=== PATIENT | male | born 1990 | race Caucasian/White ===

== ENCOUNTER 2016-09-12 21:59 | Emergency (ER) | payer MEDICAID ==
[~2016-09-12] VITALS: Ht 172.7 cm; Wt 90.7 kg
[~2016-09-12 21:59] MED LIST: KEFLEX 500MG.500 MG PO
--- OUTSIDE RECORDS SUMMARY | 2016-09-12 22:09 | External Medical Summary Rpt ---
Author Author , DOMINIQUE Soriano DOMINIQUE Address Unknown Phone [email or web address] Care Team Providers Care Dry Chain Worker Name Role Phone [facility] [place], Unavailable Unavailable [facility] [place] [facility] [place], Unavailable Unavailable [facility] [place] BEINEKE MARIELA, BEINEKE Unavailable Unavailable MARIELA BEINEKE MARIELA, BEINEKE Unavailable Unavailable MARIELA [facility] Unavailable Unavailable SERVICE, [facility] [employer] [facility] Unavailable Unavailable SERVICE, [facility], Unavailable Unavailable [facility] FRYMELENA FRYMAN Unavailable Unavailable ALEXANDR JOANNE, ALEXANDR Unavailable Unavailable JOANNE [facility] Unavailable Unavailable INC, [facility] Unavailable Unavailable HOSPITAL P, [facility] P [facility], Unavailable Unavailable [facility] MALGORZATA MCGARRY Unavailable Unavailable [facility], [facility] TAMMIE NAGEL, Unavailable Unavailable TAMMIE NAGEL JR DWI, HOLLIE Unavailable Unavailable JR DWI MERHAR GAR, MERHAR Unavailable Unavailable RICK CROCKER, Unavailable Unavailable RICK WILLIAM R HENRY, Unavailable Unavailable Higinio CALDWELL, Unavailable Unavailable [facility], [facility] HERIBERTO LUNA, HERIBERTO Unavailable Unavailable [facility] Unavailable Unavailable EM[facility]Y [facility], [facility] Purpose Continuity of Care Document - 03-29-2007 through 2016 Problems Code Diagnosis DOS Provider Status R140 ABDOMINAL 06-08-2016 [facility] DISTENSION PHYSICIANS GASEOUS GROUP Z0000 ENCOUNTER 06-08-2016 [facility] GEN ADULT PHYSICIANS MED EXAM GROUP W/O ABNORMAL FIND R1084 GENERALIZED 04-29-2016 DESIREE ABDOMINAL PHYSICIANS, PAIN [facility] Z720 TOBACCO USE 04-29-2016 [facility] 6089 UNSPECIFIED 06-26-2014 [facility] P GENITAL ORGANS 44136 OTHER 10-10-2013 [facility] AMBULANCE OF SERVICE CONSCIOUSNE SS 7802 SYNCOPE AND 10-10-2013 [facility] P 7991 RESPIRATORY 10-10-2013 BEINEKE MARIELA ARREST 9778 POISONING 10-10-2013 [facility] OTHER SPEC N EMERGENCY DRUGS&MEDIC PHYSI INAL SUBSTANCES E9505 CECE&SLF-INF 10-10-2013 [facility] POISN AMBULANCE UNS SERVICE RX/MEDICINA L SBSTNC E9804 POISONING 10-10-2013 [facility] BY OTH DRUG N EMERGENCY & PHYSI MEDICINE-UN DETERM CAUSE V642 SURG/OTH 10-10-2013 [facility] PROC NOT [facility] CARRIED OUT HOSPITAL P BECAUSE PTS DECN 28426 OPEN WOUND 06-19-2013 [facility] WITHOUT [facility] M[place]ION COMPLICATIO N 35008 OPEN WOUND 06-19-2013 [facility] OF [place]ST, [place] COMPLICATED 8820 OPEN WOUND 06-19-2013 [facility] NO SERV [facility] ALONE W/O MENTION COMP 8831 OPEN WOUND 06-19-2013 [facility] OF FINGER, [place] COMPLICATED 9039 INJURY 06-19-2013 AIR [facility] UNSPECIFIED [place] BLOOD VESSEL UPPER EXTREMITY E986 INJR 06-19-2013 [facility] CUT&PIERC SERV INSTRUM [facility]OUNDATION UNDET ACC/PRPSLY INFLICT 460 ACUTE 12-06-2008 [facility] ITIS 6829 CELLULITIS 06-19-2008 [facility] UNSPECIFIED SITE 7062 SEBACEOUS 06-19-2008 [facility] 2150 OTH ANEUDY 01-12-2008 ROBE, NEOPLSM TAMMIE Smith CNCTV&OTH SFT TISS HEAD FCE&NCK 94632 ACUTE 01-12-2008 ROBE, INFECTION TAMMIE Smith OF [place] 5273 ABSCESS OF 03-29-2007 FAMILY [facility] GLAND Medications Na ND Rx Da Fi Fi Am Da Di Ph RX Ph St me C No te ll ll ou ys ag ar # ys at rm s nt no ma ic us Or Da si cy ia de te s n re d CL 00 10 10 00 14 7 CL 20 MU Ac AR 05 -0 -0 .0 IN 17 LB ti IT 40 1- 8- 00 IC 92 ER ve HR 03 20 20 RY OM 72 09 09 PH YC 1 AR BR IN MA IA CY N 50 T 0 MG TA BL ET AM 00 04 04 00 21 7 CL 19 NO Ac OX 78 -1 -2 .0 IN 17 RF ti IC 12 4- 3- 00 IC 36 LE ve IL 61 20 20 ET LI 30 09 09 PH R N 1 AR 50 MA HE 0 CY NR MG Y CA PS UL E 53 02 04 00 10 5 CL 16 No Ac 48 -2 -0 .0 IN 57 t ti 90 6- 7- 00 IC 10 Av ve 13 20 20 ai 90 08 08 PH la 5 AR bl MA e CY 60 02 04 00 18 5 CL 16 No Ac 25 -2 -0 0. IN 57 t ti 80 6- 7- 00 IC 09 Av ve 23 20 20 0 ai 91 08 08 PH la 6 AR bl MA e CY AM 66 01 03 00 14 7 CL 16 No Ac OX 68 -2 -2 .0 IN 31 t ti -C 51 2- 5- 00 IC 94 Av ve LA 00 20 20 ai V 10 08 08 PH la 87 0 AR bl 5- MA e 12 CY 5 MG TA BL ET Results Labs Lab Lab Date Result Refere Interp Status Commen Order Detail nces retati t Range on Drugs identified in Urine by Screen method (09-10-2016 15:05) Ampheta NEGATIV <1000 complet mine 017 E ed [Presen 15:05 ce] in Urine by Screen method 11-Hydr POSITIV <50 Abnorma complet oxy 017 E l ed delta-9 15:05 tetrahy drocann abinol [Presen ce] in Unspeci fied specime n Differential panel, method unspecified - (09-10-2016 13:05) LYMPH 23 % 10% - Normal complet 017 50% ed 13:05 Platele NORMAL complet ts 017 ed [Presen 13:05 ce] in Blood by Light microsc opy Procedures Procedure DOS Code Location Performer Comment GENERAL 87203 [facility] PANEL INC INC HEPATITIS 71014 [facility] B CORE 7 [facility] [place] [address] [facility] HEPATITIS [facility] B INC INC SURFACE ANTIGEN HEPATITIS 89187 [facility] C [facility] [place] [address] [facility] FREE [facility] THYROXINE INC INC HEPATITIS 49349 G[facility] A 7 [facility] ANTIBODY INC INC HAAB COLLECTIO 02548 [facility] N VENOUS 7 [facility] BLOOD INC INC VENIPUNCT URE LIPID 61663 [facility] PANEL 7 [facility] INC INC URNLS DIP 24765 [facility] STICK/TAB INC INC LET REAGENT AUTO MICROSCOP Y BLOOD 12980 [facility] COUNT 7 [facility] COMPLETE INC INC AUTO&AUTO DIFRNTL WBC COMPREHEN 41473 [facility] SIVE 7 [facility] [place] [address] [facility] ABDOMEN & 7 [facility] PELVIS INC INC W/O CONTRAST MATERIAL PROTHROMB 95624 [facility] IN TIME 7 [facility] INC THROMBOPL 72660 [facility] ASTIN 7 [facility] TIME INC INC PARTIAL PLASMA/WH OLE BLOOD RADIOLOGI 25393 BEINEKE BEINEKE C 4 MARIELA MARIELA EXAMINATI ON CHEST SINGLE VIEW FRONTAL AMB A0427 BRUNILDA [facility] SERVICE 4 AMBULANCE AMBULANCE ALS SERVICE SERVICE EMERGENCY TRANSPORT LEVEL 1 ECG 60292 [facility] BROWNE JR ROUTINE 4 [facility] W/LEAST P 12 LDS I&R ONLY GROUND A0425 [facility] MILEAGE 4 AMBULANCE AMBULANCE PER SERVICE SERVICE STATUTE MILE RADEX 15369 [place] [facility] HAND 4 MEDICAL GAR MINIMUM 3 SERV VIEWS FOUNDATIO N AMB A0431 [facility] SERVICE 4 METHODS METHODS CONVNTION [facility] AIR SRVC TRANSPORT [address] RADEX 97276 [place] [facility] FOREARM 2 4 MEDICAL GAR VIEWS SERV FOUNDATIO N BLOOD 38000 FAMILY MULBERRY, COUNT 9 CARE RICK T COMPLETE ASSOCIATE AUTO&AUTO S DIFRNTL WBC IAADIADOO 74510 FAMILY PAULETTE, 8 CARE Higinio RAHMAN STREPTOCO ASSOCIATE CCUS S GROUP A Encounters Encounter Start End Date Code Location Performer Type Date OFFICE 83191 [facility] FRYMAN OUTPATIEN 7 7 PHYSICIAN T NEW 20 S GROUP [facility] - 7 7 [facility] OUTPATIEN INC T EMERGENCY 69485 DESIREE MCGARRY DEPT 7 7 PHYSICIAN VISIT S, PLLC HIGH SEVERITY& THREAT [facility] - 7 7 [facility] H[facility] OUTPATIEN INC T EMERGENCY 25208 [facility] 7 7 [facility] DEPARTMEN INC T VISIT MODERATE SEVERITY EMERGENCY 99355 [facility] 5 5 [facility] INC T VISIT LIMITED/M INOR PROB EMERGENCY 50150 [facility] 5 5 [facility] T VISIT P LOW/MODER SEVERITY HOSPITAL GINGER - 5 5 MEM HOSP OUTPATIEN INC T EMERGENCY 64440 [facility] DEPT 4 4 LIZ JOANNE VISIT EMERGENCY HIGH PHYSI SEVERITY& THREAT [facility], [facility] EMERGENCY 86968 JENSEN SNYDERU 4 4 [facility] SERV T VISIT FOUNDATIO MODERATE N SEVERITY OFFICE 12689 FAMILY STEWART OUTPOOJAEN 9 9 CARE RICK T T VISIT ASSOCIATE 15 S MINUTES OFFICE 98471 FAMILY PAULETTE OUTGENEVIEVE 9 9 CARE R LACEY T VISIT ASSOCIATE 15 S MINUTES OFFICE 41175 ROBE NAGEL, OUTPOOJAEN 8 8 TAMMIE Young NEW 30 MINUTES OFFICE 63277 FAMILY PAULETTE OUTPOOJAEN 8 8 CARE R LACEY T VISIT ASSOCIATE 15 S MINUTES OFFICE 21860 FAMILY PAULETTE OUTPOOJAEN 8 8 CARE R LACEY T VISIT ASSOCIATE 15 S MINUTES
--- OUTSIDE RECORDS SUMMARY | 2016-09-12 22:09 | External Medical Summary Rpt ---
Author Author , DOMINIQUE Soriano DOMINIQUE Address Unknown Phone [email or web address] Care Team Providers Care Loan Servicing Representative Name Role Phone [facility] [place], Unavailable Unavailable [facility] [place] [facility] [place], Unavailable Unavailable [facility] [place] BEINEKE MARIELA, BEINEKE Unavailable Unavailable MARIELA BEINEKE MARIELA, BEINEKE Unavailable Unavailable MARIELA [facility] Unavailable Unavailable SERVICE, [facility] Unavailable Unavailable SERVICE, [facility], Unavailable Unavailable [facility]INIC PHARMACY FRYMELENA FRYMAN Unavailable Unavailable ALEXANDR JOANNE, ALEXANDR Unavailable Unavailable JOANNE [facility] Unavailable Unavailable INC, [facility] Unavailable Unavailable HOSPITAL P, [facility] P [facility], Unavailable Unavailable [facility] MALGORZATA MCGARRY Unavailable Unavailable [facility], [facility] TAMMIE NAGEL, Unavailable Unavailable TAMMIE NAGEL JR DWI, HOLLIE Unavailable Unavailable JR DWI MERHAR GAR, MERHAR Unavailable Unavailable RICK CROCKER, Unavailable Unavailable RICK WILLIAM R HENRY, Unavailable Unavailable Higinio CALDWELL, Unavailable [facility]available [facility], [facility] HERIBERTO LUNA, HERIBERTO Unavailable Unavailable [facility] Unavailable Unavailable EMERGENCY PHYSI, [facility] Purpose Continuity of Care Document - 03-29-2007 through 2016 Problems Code Diagnosis DOS Provider Status R140 ABDOMINAL 06-08-2016 [facility] DISTENSION PHYSICIANS GASEOUS GROUP Z0000 ENCOUNTER 06-08-2016 [facility] GEN ADULT PHYSICIANS MED EXAM GROUP W/O ABNORMAL FIND R1084 GENERALIZED 04-29-2016 DESIREE ABDOMINAL PHYSICIANS, PAIN [facility] Z720 TOBACCO USE 04-29-2016 [facility] INC 6089 UNSPECIFIED 06-26-2014 [facility] P GENITAL ORGANS 32132 OTHER 10-10-2013 [facility] AMBULANCE OF SERVICE CONSCIOUSNE SS 7802 SYNCOPE AND 10-10-2013 [facility] P 7991 RESPIRATORY 10-10-2013 BEINEKE MARIELA ARREST 9778 POISONING 10-10-2013 [facility] OTHER SPEC N EMERGENCY DRUGS&MEDIC PHYSI INAL SUBSTANCES E9505 CECE&SLF-INF 10-10-2013 [facility] LI[facility] POISN AMBULANCE UNS SERVICE RX/MEDICINA L SBSTNC E9804 POISONING 10-10-2013 [facility] BY OTH DRUG N EMERGENCY & PHYSI MEDICINE-UN DETERM CAUSE V642 SURG/OTH 10-10-2013 [facility] PROC NOT [facility] CARRIED OUT HOSPITAL P BECAUSE PTS DECN 67225 OPEN WOUND 06-19-2013 [facility] SERV WITHOUT FOUNDATION MENTION COMPLICATIO N 23094 OPEN WOUND 06-19-2013 [facility] OF WRIST, [place] COMPLICATED 8820 OPEN WOUND 06-19-2013 IN MEDICAL HAND NO SERV [facility]OUNDATION ALONE W/O MENTION COMP 8831 OPEN WOUND 06-19-2013 [facility] OF FINGER, [place] COMPLICATED 9039 INJURY 06-19-2013 [facility] UNSPECIFIED [place] BLOOD VESSEL UPPER EXTREMITY E986 INJR 06-19-2013 [facility] MEDICAL CUT&PIERC SERV INSTRUM FOUNDATION UNDET ACC/PRPSLY INFLICT 460 ACUTE 12-06-2008 [facility] ITIS 6829 CELLULITIS 06-19-2008 [facility] ABSCESS [facility] OF UNSPECIFIED SITE 7062 SEBACEOUS 06-19-2008 [facility] 2150 OTH ANEUDY 01-12-2008 ROBE, NEOPLSM TAMMIE Smith CNCTV&OTH SFT TISS HEAD FCE&NCK 18314 ACUTE 01-12-2008 ROBE, INFECTION TAMMIE Smith OF [place] 5273 ABSCESS OF 03-29-2007 FAMILY [facility] SALIVARY ASSOCIATES GLAND Medications Na ND Rx [...] Procedure DOS Code Location Performer Comment GENERAL 08973 [facility] PANEL INC INC HEPATITIS 24195 G[facility] B CORE 7 [facility] [place]IB[place] [address] [facility] HEPATITIS [facility] B INC INC SURFACE ANTIGEN HEPATITIS 24404 [facility] C 7 [facility] [place] [address] [facility] FREE 7 [facility] THYROXINE INC INC HEPATITIS 36627 [facility] A 7 [facility] ANTIBODY INC INC HAAB COLLECTIO 91940 [facility] N VENOUS 7 MEM HOS[facility] BLOOD INC INC VENIPUNCT URE LIPID 46440 [facility] PANEL 7 [facility] INC INC URNLS DIP 84280 [facility] STICK/TAB INC INC LET REAGENT AUTO MICROSCOP Y BLOOD 23761 [facility] COUNT 7 [facility] COMPLETE INC INC AUTO&AUTO DIFRNTL WBC COMPREHEN 08873 [facility] SIVE 7 [facility] [place] [address] [facility] ABDOMEN & 7 [facility] PELVIS INC INC W/O CONTRAST MATERIAL PROTHROMB 29042 [facility] IN TIME 7 [facility] HOS[facility] INC THROMBOPL 36501 [facility] ASTIN 7 MEM HOS[facility] TIME INC INC PARTIAL PLASMA/WH OLE BLOOD RADIOLOGI 52520 BEINEKE BEINEKE C 4 MARIELA MARIELA EXAMINATI ON CHEST SINGLE VIEW FRONTAL AMB A0427 BRUNILDA [facility] SERVICE 4 AMBULANCE AMBULANCE ALS SERVICE SERVICE EMERGENCY TRANSPORT LEVEL 1 ECG 74903 GINGER BROWNE JR ROUTINE 4 [facility] W/LEAST P 12 LDS I&R ONLY GROUND A0425 [facility] MILEAGE 4 AMBULANCE AMBULANCE PER SERVICE SERVICE STATUTE MILE RADEX 25971 [place] [facility] HAND 4 MEDICAL GAR MINIMUM 3 SERV VIEWS FOUNDATIO N AMB A0431 AIR AIR SERVICE 4 METHODS METHODS CONVNTION [facility] AIR SRVC TRANSPORT [address] RADEX 46421 [place] [facility] FOREARM 2 4 MEDICAL GAR VIEWS SERV FOUNDATIO N BLOOD 57856 FAMILY MULBERRY, COUNT 9 CARE RICK T COMPLETE ASSOCIATE AUTO&AUTO S DIFRNTL WBC IAADIADOO 52937 FAMILY PAULETTE, 8 CARE Higinio RAHMAN STREPTOCO ASSOCIATE CCUS S GROUP A Encounters Encounter Start End Date Code Location Performer Type Date OFFICE 56468 [facility] FRYMAN OUTPATIEN 7 7 PHYSICIAN T NEW 20 S GROUP [facility] GINGER - 7 7 MEM HOS[facility] OUTPATIEN INC T EMERGENCY 20778 DESIREE MCGARRY DEPT 7 7 PHYSICIAN VISIT S, PLLC HIGH SEVERITY& THREAT [facility] GINGER - 7 7 MEM HOS[facility] OUTPATIEN INC T EMERGENCY 20879 GINGER 7 7 [facility] DEPARTMEN INC T VISIT MODERATE SEVERITY EMERGENCY 56752 [facility] 5 5 [facility] INC T VISIT LIMITED/M INOR PROB EMERGENCY 71800 [facility]ING[facility] 5 5 [facility] T VISIT P LOW/MODER SEVERITY [facility]OSPITAL GINGER - 5 5 [facility] OUTPATIEN INC T EMERGENCY 14973 [facility] INC DEPT 4 4 LIZ JOANNE VISIT EMERGENCY HIGH PHYSI SEVERITY& THREAT [facility] EMERGENCY 25739 JENSEN SNYDERU 4 4 [facility] T VISIT FOUNDATIO MODERATE N SEVERITY OFFICE 90990 FAMILY STEWART OUTPOOJAEN 9 9 CARE RICK T T VISIT ASSOCIATE 15 S MINUTES OFFICE 94563 FAMILY PAULETTE OUTGENEVIEVE 9 9 CARE R LACEY T VISIT ASSOCIATE 15 S MINUTES OFFICE 25542 ROBE NAGEL, OUTPOOJAEN 8 8 TAMMIE Young NEW 30 MINUTES OFFICE 14800 FAMILY PAULETTE OUTPOOJAEN 8 8 CARE R LACEY T VISIT ASSOCIATE 15 S MINUTES OFFICE 75011 FAMILY PAULETTE OUTPOOJAEN 8 8 CARE R LACEY T VISIT ASSOCIATE 15 S MINUTES
--- OUTSIDE RECORDS SUMMARY | 2016-09-12 22:10 | External Medical Summary Rpt ---
Demographics Preferred Language Spanish Marital Status Unknown Jehovah'S Witness Affiliation Unknown Race Unknown Ethnic Group Unknown Author Author , DOMINIQUE FOX Address Unknown Phone Immunization Unable to retrieve immunization data due to connection failure with Immunization Registry. Please try again later.
--- OUTSIDE RECORDS SUMMARY | 2016-09-12 22:10 | External Medical Summary Rpt ---
Demographics Preferred Language Puerto Rican Marital Status Unknown Restorationist Affiliation Unknown Race Unknown Ethnic Group Unknown Author Author , DOMINIQUE FOX Address Unknown Phone Immunization Unable to retrieve immunization data due to connection failure with Immunization Registry. Please try again later.
--- OUTSIDE RECORDS SUMMARY | 2016-09-12 22:10 | External Medical Summary Rpt ---
Author Author , DOMINIQUE FOX Address Unknown Phone [email or web address] Team Providers Care Freight Tallier Name Role Phone [facility] [place], Unavailable Unavailable [facility] [place] [facility] [place], Unavailable Unavailable [facility] [place] BEINEKE MARIELA, BEINEKE Unavailable Unavailable MARIELA BEINEKE MARIELA, BEINEKE Unavailable Unavailable MARIELA [facility] Unavailable Unavailable SERVICE, [facility] Unavailable Unavailable SERVICE, [facility]ICE [facility], Unavailable Unavailable [facility] FRYMELENA FRYMAN Unavailable Unavailable ALEXANDR JOANNE, ALEXANDR Unavailable Unavailable JOANNE [facility] Unavailable Unavailable INC, [facility] Unavailable Unavailable HOSPITAL P, [facility], Unavailable Unavailable [facility] MALGORZATA MCGARRY Unavailable Unavailable [facility], [facility] TAMMIE NAGEL, Unavailable Unavailable TAMMIE NAGEL JR DWI, HOLLIE Unavailable Unavailable JR DWI MERHAR GAR, MERHAR Unavailable Unavailable GAR RICK WILLIAM, Unavailable Unavailable RICK WILLIAM R HENRY, Unavailable Unavailable Higinio [facility], Unavailable Unavailable [facility], [facility], [facility] HERIBERTO LUNA, HERIBERTO Unavailable Unavailable [facility] Unavailable Unavailable EMERGENCY [facility], [facility] Purpose Continuity of Care Document - 03-29-2007 through 2016 Problems Code Diagnosis DOS Provider Status R140 ABDOMINAL 06-08-2016 [facility] DISTENSION PHYSICIANS GASEOUS GROUP Z0000 ENCOUNTER 06-08-2016 [facility] GEN ADULT PHYSICIANS MED EXAM GROUP W/O ABNORMAL FIND R1084 GENERALIZED 04-29-2016 [facility] ABDOMINAL PHYSICIANS, [facility] Z720 TOBACCO USE 04-29-2016 [facility] INC 6089 UNSPECIFIED 06-26-2014 [facility] P GENITAL ORGANS 06534 OTHER 10-10-2013 [facility] AMBULANCE OF SERVICE CONSCIOUSNE SS 7802 SYNCOPE AND 10-10-2013 [facility] P 7991 RESPIRATORY 10-10-2013 BEINEKE MARIELA ARREST 9778 POISONING 10-10-2013 [facility] OTHER SPEC N EMERGENCY DRUGS&MEDIC PHYSI INAL SUBSTANCES E9505 CECE&SLF-INF 10-10-2013 [facility] LICT POISN AMBULANCE UNS SERVICE RX/MEDICINA L [facility] E9804 POISONING 10-10-2013 [facility] BY OTH DRUG N EMERGENCY & PHYSI MEDICINE-UN DETERM CAUSE V642 SURG/OTH 10-10-2013 [facility] PROC NOT [facility] P BECAUSE PTS DECN 91318 OPEN WOUND 06-19-2013 [facility] WITHOUT FOUNDATION MENTION COMPLICATIO N 77380 OPEN WOUND 06-19-2013 AIR METHODS OF [place]RIST, [place] COMPLICATED 8820 OPEN WOUND 06-19-2013 [facility] HAND NO SERV [facility] FOUNDATION ALONE W/O MENTION COMP 8831 OPEN WOUND 06-19-2013 AIR [facility] OF FINGER, [place] COMPLICATED 9039 INJURY 06-19-2013 AIR METHODS UNSPECIFIED [place] BLOOD VESSEL UPPER EXTREMITY E986 INJR 06-19-2013 [facility] CUT&PIERC SERV INSTRUM FOUNDATION UNDET ACC/PRPSLY INFLICT 460 ACUTE 12-06-2008 [facility] ITIS 6829 CELLULITIS 06-19-2008 [facility] ABSCESS [facility] OF UNSPECIFIED SITE 7062 SEBACEOUS 06-19-2008 [facility] CYST ASSOCIATES 2150 OTH ANEUDY 01-12-2008 RO[facility] NEOPLSM TAMMIE mSith CNCTV&OTH SFT TISS HEAD FCE&NCK 66866 ACUTE 01-12-2008 ROBE, INFECTION TAMMIE Smith OF [place] 5273 ABSCESS OF 03-29-2007 [facility] SALIVARY ASSOCIATES GLAND Medications Na ND [...] 12 CY 5 MG TA BL ET Procedures Procedure DOS Code Location Performer Comment HEPATITIS 98654 G[facility] B CORE 7 [facility] [place] [address] [facility] HEPATITIS 7 [facility] B INC INC SURFACE ANTIGEN COLLECTIO 67907 G[facility] MILES N VENOUS 7 [facility] [place] [address] [facility] FREE 7 [facility] THYROXINE INC INC HEPATITIS 43706 G[facility] MILES A 7 MEM H[facility] ANTIBODY INC INC HAAB LIPID 02898 [facility] PANEL 7 [facility] INC INC HEPATITIS 71410 [facility] C 7 [facility] ANTIBODY INC INC GENERAL 40665 [facility] HEALTH 7 [facility] PANEL INC INC BLOOD 84654 [facility] COUNT 7 [facility] COMPLETE INC INC AUTO&AUTO DIFRNTL WBC THROMBOPL 66848 [facility] ASTIN 7 [facility] TIME INC INC PARTIAL PLASMA/WH OLE BLOOD URNLS DIP 75032 [facility] MILES 7 [facility] STICK/TAB INC INC LET REAGENT AUTO MICROSCOP Y COMPREHEN 30620 [facility] SIVE 7 [facility] METABOLIC INC INC PANEL PROTHROMB 35069 [facility] MILES IN TIME [address] [place] [address] G[facility] MILES ABDOMEN & 7 [facility] PELVIS INC INC W/O CONTRAST MATERIAL ECG 86733 GINGER BROWNE JR ROUTINE 4 [facility] W/LEAST P 12 LDS I&R ONLY GROUND A0425 BRUNILDA [facility] MILEAGE 4 AMBULANCE AMBULANCE PER SERVICE SERVICE STATUTE MILE RADIOLOGI 22720 RAJESH ALMAZANCAMMY C 4 MARIELA MARIELA EXAMINATI ON CHEST SINGLE VIEW FRONTAL AMB A0427 [facility] SERVICE 4 AMBULANCE AMBULANCE ALS SERVICE SERVICE EMERGENCY TRANSPORT LEVEL 1 AMB A0431 AIR [facility] SERVICE 4 METHODS METHODS CONVNTION [facility] AIR SRVC TRANSPORT [address] RADEX 71496 [place] [facility] FOREARM 2 4 MEDICAL GAR VIEWS SERV FOUNDATIO N RADEX 38518 [place] [facility] HAND 4 MEDICAL GAR MINIMUM 3 SERV VIEWS FOUNDATIO N BLOOD 47204 FAMILY MULBERRY, COUNT 9 CARE RICK T COMPLETE ASSOCIATE AUTO&AUTO S DIFRNTL WBC IAADIADOO 32066 FAMILY PAULETTE, 8 CARE R LACEY STREPTOCO ASSOCIATE CCUS S GROUP A Encounters Encounter Start End Date Code Location Performer Type Date HOSPITAL GINGER - 7 7 [facility] OUTPATIEN INC T OFFICE 82141 [facility] FRYMAN OUTPATIEN 7 7 PHYSICIAN T NEW 20 S GROUP MINUTES EMERGENCY 09863 GINGER 7 7 [facility] T VISIT MODERATE SEVERITY EMERGENCY 37996 DESIREE MCGARRY DEPT 7 7 PHYSICIAN VISIT S, PLLC HIGH SEVERITY& THREAT [facility] GINGER - 7 7 [facility] OUTPATIEN INC T HOSPITAL GINGER - 5 5 [facility] OUTPATIEN INC T EMERGENCY 90340 [facility] 5 5 [facility] VISIT LIMITED/M INOR PROB EMERGENCY 30543 GINGER 5 5 [facility] T VISIT P LOW/MODER SEVERITY EMERGENCY 88624 [facility] DEPT 4 4 LIZ JOANNE VISIT EMERGENCY HIGH PHYSI SEVERITY& THREAT FUNCJ EMERGENCY 72175 [place] HERIBERTO 4 4 MEDICAL LUNA DEPARTMEN SERV T VISIT FOUNDATIO MODERATE N SEVERITY OFFICE 24882 FAMILY STEWART, OUTPATIEN 9 9 CARE RICK T T VISIT ASSOCIATE 15 S MINUTES OFFICE 32723 FAMILY PAULETTE, OUTPATIEN 9 9 CARE R LACEY T VISIT ASSOCIATE 15 S MINUTES OFFICE 19580 ROBE NAGEL, OUTPATIEN 8 8 TAMMIE Young NEW 30 MINUTES OFFICE 40298 FAMILY PAULETTE, OUTPATIEN 8 8 CARE R LACEY T VISIT ASSOCIATE 15 S MINUTES OFFICE 52373 FAMILY PAULETTE, OUTPATIEN 8 8 CARE R LACEY T VISIT ASSOCIATE 15 S MINUTES
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
--- OUTSIDE RECORDS SUMMARY | 2016-09-12 22:11 | External Medical Summary Rpt ---
Author Author DOMINIQUE Esteban, [employer] Organization [employer] Address Unknown Phone Unavailable Results Drugs identified in Urine by Screen method Observa Value Referen Units Interpr Notes Date tion ce etation Range Positive urine drug screen samples are stored for 7 days. Contact the Lab if confirmation of positives is needed. Ampheta NEGATIV <1000 ng/mL No No Sep 10 mine E informa informa 2016 [Presen tion in tion in 3:05 PM ce] in source source Urine data data by Screen method Barbitura <200 ng/mL No No Sep 10 susan informati informati 2017 3:05 [Mass/vol on in on in PM ume] in source source Urine by data data Screen method Benzodiaz 200 ng/mL ng/mL High This is Sep 10 epines an 2016 3:05 [Mass/vol UNCONFIRM PM ume] in ED Serum or result. Plasma by This Screen result is method for medicalpu rposes and/or treatment only. Cocaine <300 ng/g No No Sep 10 [Mass/vol informati informati 2017 3:05 ume] in on in on in PM Unspecifi source source ed data data specimen Methadone <300 ng/mL No No Sep 10 informati informati 2016 3:05 [Mass/vol on in on in PM ume] in source source Unspecifi data data ed specimen Opiates <300 ng/mL No No Sep 10 [Mass/vol informati informati 2016 3:05 ume] in on in on in PM Unspecifi source source ed data data specimen Phencycli <25 ng/mL No No Sep 10 dine informati informati 2017 3:05 [Mass/vol on in on in PM ume] in source source Unspecifi data data ed specimen 11-Hydr POSITIV <50 ng/mL Abnorma This is Sep 10 oxy E l an 2017 delta-9 UNCONFI 3:05 PM RMED tetrahy result. drocann This abinol result [Presen is for ce] in medical Unspeci purpose fied s specime and/or n treatme nt only. Acetaminophen [Mass/volume] in Unspecified specimen Observa Value Referen Units Interpr Notes Date tion ce etation Range Acetamino 10 - 30 ug/mL Low No Sep 10 phen informati 2016 1:05 [Mass/vol on in PM ume] in source Unspecifi data ed specimen Ethanol [Mass/volume] in Serum or Plasma Observa Value Referen Units Interpr Notes Date tion ce etation Range Ethanol 0 - 99 mg/dL Normal ANY Sep 10 [Mass/vol ALCOHOL > 2017 1:05 ume] in OR = 80 PM Serum or MG/DL IS Plasma CONSIDERE D LEGALLYIN TOXICATED UNDER [place] [employer] LAW. Comprehensive metabolic 2000 panel in Serum or Plasma Observa Value Referen Units Interpr Notes Date tion ce etation Range Albumin/G 1.1 - 1.8 No Normal No Sep 10 lobulin informati informati 2016 1:05 [Mass on in on in PM ratio] in source source Serum or data data Plasma Albumin 3.4 - 5.0 gm/dL High No Sep 10 [Mass/vol informati 2016 1:05 ume] in on in PM Serum or source Plasma data Alkaline 46 - 116 U/L Normal No Sep 10 phosphata informati 2016 1:05 se on in PM [Enzymati source c data activity/ volume] in Serum or Plasma Bilirubin 0.2 - 1.0 mg/dL High No Sep 10 .total informati 2016 1:05 [Mass/vol on in PM ume] in source Serum or data Plasma Urea 7 - 18 mg/dL High No Sep 10 nitrogen informati 2017 1:05 [Mass/vol on in PM ume] in source Serum or data Plasma Calcium 8.5 - mg/dL Normal No Sep 10 [Mass/vol 10.1 informati 2017 1:05 ume] in on in PM Serum or source Plasma data Chloride 98 - 107 mmoL/L Normal No Sep 10 [Moles/vo informati 2016 1:05 lume] in on in PM Serum or source Plasma data Carbon 21.0 - mmoL/L Low No Sep 10 dioxide, 32.0 informati 2017 1:05 total on in PM [Moles/vo source lume] in data Serum or Plasma Creatinin 0.70 - mg/dL Normal No Sep 10 e 1.30 informati 2017 1:05 [Mass/vol on in PM ume] in source Serum or data Plasma Creatinin 50 - 200 ML/MIN Normal No Sep 10 e renal inform2016 1:05 clearance on in PM source predicted data by Cockcroft -Gault formula Estimated >60 ML/MIN No REFERENCE Sep 10 informati RANGE: 2017 1:05 glomerula on in >60 PM r source ML/MIN/1. filtratio data 73 SQUARE n rate METERSIf (GF this patient is -A merican, then multiply theresult by 1.210. Globulin 1.3 - 3.2 gm/dL High No Sep 10 [Mass/vol informati 2016 1:05 ume] in on in PM Serum source data Glucose 74 - 106 mg/dL Normal No Sep 10 [Mass/vol informati 2016 1:05 ume] in on in PM Serum or source Plasma data Potassium 3.5 - 5.1 mmoL/L Low No Sep 102016 1:05 [Moles/vo on in PM lume] in source Serum or data Plasma Sodium 136 - 145 mmoL/L Normal No Sep 10 [Moles/vo informati 2016 1:05 lume] in on in PM Serum or source Plasma data Aspartate 15 - 37 U/L High No Sep 10 informati 2016 1:05 aminotran on in PM sferase source [Enzymati data c activity/ volume] in Serum or Plasma Alanine 12 - 78 U/L Normal No Sep 10 aminotran inform2016 1:05 sferase on in PM [Enzymati source c data activity/ volume] in Serum or Plasma Protein 6.4 - 8.2 gm/dL High No Sep 10 [Mass/vol informati 2016 1:05 ume] in on in PM Serum or source Plasma data Salicylates [Mass/volume] in Serum or Plasma Observa Value Referen Units Interpr Notes Date tion ce etation Range Salicylat 2.8 - mg/dL Low No Sep 10 es 20.0 ati 2016 1:05 [Mass/vol on in PM ume] in source Serum or data Plasma Free T4 & TSH panel in Serum or Plasma Observa Value Referen Units Interpr Notes Date tion ce etation Range Thyroxine 5.93 - ug/dl Normal No Sep 10 (T4) 13.13 informati 2016 1:05 free on in PM index in source Serum or data Plasma Triiodoth 31 - 39 % Normal No Sep 10 yronine informati 2016 1:05 (T3) on in PM resin source uptake in data Serum or Plasma Thyroxine 4.7 - ug/dl Normal No Sep 10 (T4) 13.3 inform2016 1:05 [Mass/vol on in PM ume] in source Serum or data Plasma Thyrotrop 0.358 - uIU/ml No No Sep 10 in 3.740 informati informati 2016 1:05 [Units/vo on in on in PM lume] in source source Serum or data data Plasma CBC W Auto Differential panel in Blood Observa Value Referen Units Interpr Notes Date tion ce etation Range Basophils 0 - 0.2 K/MM3 Normal No Sep 10 inform2016 1:05 [#/volume on in PM ] in source Blood by data Automated count Basophils 0.1 - 2.0 % Normal No Sep 10 /100 informati 2016 1:05 leukocyte on in PM s in source Blood by data Automated count Eosinophi 0.0 - 0.4 K/mm3 Normal No Sep 10 ls ati 2016 1:05 [#/volume on in PM ] in source Blood by data Automated count Eosinophi 0.1 - % Normal No Sep 10 ls/100 12.0 informati 2016 1:05 leukocyte on in PM s in source Blood by data Automated count Granulocy 1.3 - 8.0 K/mm3 High No Sep 10 susan informati 2016 1:05 [#/volume on in PM ] in source Blood by data Automated count Granulocy 37.0 - % Normal No Sep 10 susan/100 80.0 informati 2016 1:05 leukocyte on in PM s in source Blood by data Automated count Hematocri 42.0 - % Normal No Sep 10 t [Volume 52.0 informati 2016 1:05 on in PM Fraction] source of Blood data Hemoglobi 14.1 - g/dL Normal No Sep 10 n 18.0 informati 2016 1:05 [Mass/vol on in PM ume] in source Blood data Lymphocyt 0.7 - 4.5 K/mm3 Normal No Sep 10 es informati 2016 1:05 [#/volume on in PM ] in source Unspecifi data ed specimen by Automated count Lymphocyt 10 - 50 % Normal No Sep 10 es informati 2016 1:05 [#/volume on in PM ] in source Unspecifi data ed specimen by Automated count Erythrocy 27 - 31.2 pg High No Sep 10 te mean inform2016 1:05 corpuscul on in PM ar source hemoglobi data n [Entitic mass] Erythrocy 31.8 - g/dl Normal No Sep 10 te mean 35.4 inform 2017 1:05 corpuscul on in PM ar source hemoglobi data n concentra tion [Mass/vol ume] by Automated count Erythrocy 82.2 - fl Normal No Sep 10 te mean 97.8 informati 2016 1:05 corpuscul on in PM ar volume source [Entitic data volume] by Automated count Monocytes 0.1 - 1.0 K/mm3 Normal No Sep 10 informati 2016 1:05 [#/volume on in PM ] in source Blood by data Automated count Monocytes 1.7 - 9.3 % Normal No Sep 10 informati 2016 1:05 leukocyte on in PM s in source Blood by data Automated count Platelet 7.4 - fl Low No Sep 10 mean 10.4 informati 2016 1:05 volume on in PM [Entitic source volume] data in Blood by Automated count Platelets 142 - 424 K/mm3 Normal No Sep 10 informati 2017 1:05 [#/volume on in PM ] in source Blood data Erythrocy 4.6 - 6.2 M/mm3 Normal No Sep 10 susan informati 2017 1:05 [#/volume on in PM ] in source Amniotic data fluid Erythrocy 11.5 - % Normal No Sep 10 te 17.5 informati 2017 1:05 distribut on in PM ion width source [Entitic data volume] by Automated count Leukocyte 4.8 - K/MM3 High No Sep 10 s 10.8 informati 2016 1:05 [#/volume on in PM ] in source Blood data Differential panel, method unspecified - Observa Value Referen Units Interpr Notes Date tion ce etation Range Neutrophi 0 - 8 % Normal No Sep 10 ls.band informati 2017 1:05 form/100 on in PM leukocyte source s in data Blood by Automated count LYMPH 23 10 - 50 % Normal No Sep 10 inform 2017 tion in 1:05 PM source data Metamyelo 0 - 1 % High No Sep 10 cytes/100 informati 2017 1:05 on in PM leukocyte source s in data Blood by Manual count Monocytes 2 - 9 % Normal No Sep 10 /100 informati 2017 1:05 leukocyte on in PM s in source Blood by data Automated count Platele NORMAL No No No No Sep 10 ts informa informa informa informa 2016 [Presen tion in tion in tion in tion in 1:05 PM ce] in source source source source Blood data data data data by Light microsc opy Neutrophi 42 - 76 % Normal No Sep 10 ls informati 2016 1:05 [#/volume on in PM ] in source Blood by data Automated count Cells No #CELLS No No Sep 10 Counted informati informati informati 2017 1:05 Total [#] on in on in on in PM in Blood source source source data data data
--- OUTSIDE RECORDS SUMMARY | 2016-09-12 22:11 | External Medical Summary Rpt ---
[...] IS Plasma CONSIDERE D LEGALLYIN TOXICATED UNDER [place] [employer] LAW. Comprehensive metabolic 2000 panel in Serum [...]
[2016-09-12 22:20] LABS: HEMOGLOBIN 16.6 g/dL (14.1-18.0); LYMPH # 4.5 K/mm3 (0.7-4.5); LYMPH % 19.1 % (10-50)
--- NOTE | 2016-09-12 22:22 | Emergency Room Report ---
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 POLICE, MEDICAL CLEARANCE FOR [facility]. PT WAS FOUND IN A GARAGE NOT OF HIS OWN RESIDENCE, PT DID NOT HAVE ON ANY CLOTHES. PT IS CURRENTLY HAND CUFFED TO THE BED. PT ALERT TO SELF ONLY DURING TRIAGE. PT UNSURE OF HOW HE GOT INTO THE GARAGE. PT WAS FOUND LAYING ON THE GROUND. Onset of symptoms date/time:/ or onset unknown for:MEDICAL HX UNKNOWN Treatment Prior to Arrival: [employer]QU[employer]KER Provided by: Sepsis Risk Assessment: Temp: 102.4 B/P: 166/103 MAP: 124 Pulse: 142 Resp: 22 Recent fever? N Clinical Suspician of Infection? N Mental Status: 3 - Acutely Altered Sepsis Risk:Severe Sepsis Risk Have you (or family members/close friends) recently traveled outside the [place]? N If Yes, where/when: Have you had exposure to infectious disease within the past month? N TB? Other? Specify: Source patient, RN notes reviewed, family, old records Exam Limitations no limitations Comment pt with known pschy issues and was recently in the ed for same and tonight had fever and no cough/sore throat/ rash or flu sx - he has no chest or abd pain and no focal neuro sx Cardiac Chest Pain Chest pain indicative of cardiac No Timing/Duration this evening Severity moderate ALLERGIES Coded Allergies: No Known Allergies (09/10/16) Home Medications Reported Medications No Known Home Medications History Medical History General CAD? No Angina: No FL: No Hypertension? No Hyperlipidemia? No CHF? No DVT? No PE? No COPD? No Asthma? No Anemia? No GERD? No Gastric ulcers? No GI Bleed? No Hernia? No Thyroid Problems? No Hypothyroidism? No CVA? No Seizures? No Diabetes? No Renal Insuffiency? No End Stage Renal Disease? No UTI? No Stones? No BPH? No GB Disease: No Nephritic Syndrome? No Asplenia? No Hepatitis? No Sickle Cell Disease? No Arthritis? No Migraines? No Cataracts? No Glaucoma? No MRSA? No HIV? No TB? No Anxiety? Yes Depression? Yes Cancer? No Immunization Hx DT/Tetanus 1-4 YRS Surgical Hx Previous Surgery?Y Tonsils Social History Smoking Hx Smoker: Never Smoker Tobacco: No Packs/day N/A Alcohol Alcohol: Yes Drugs marijuana Additionial History Additional History he admits to snorting meds and thc Review of Systems All Other Systems Reviewed and Negative Constitutional see HPI, fever Eyes denies drainage ENT denies: ear pain, epistaxis, throat pain. Respiratory denies cough, denies shortness of breath, denies wheezing Cardiovascular denies chest pain, denies syncope Gastrointestinal denies diarrhea, denies vomiting Genitourinary denies: dysuria, frequency, hesitancy, hematuria. Musculoskeletal denies back pain, denies joint pain, denies joint swelling, denies neck pain Skin denies rash Psychiatric/Neurological denies headache, denies seizure Physical Exam Vital Signs Vital Signs Date Time Temp Pulse Resp B/P Pulse O2 O2 Flow FiO2 Ox Delivery Rate 09/13 0119 91 20 166/97 98 09/13 0108 92 20 99 09/13 0039 99 20 160/112 99 /09 0008 96 20 151/85 99 /08 2359 98.5 100 22 168/102 99 /08 2330 98.5 107 22 179/113 97 /08 2327 107 22 179/113 97 07/08 2258 115 22 192/112 97 07/08 2227 131 22 187/109 97 07/08 2204 102.4 142 22 166/103 97 General Appearance no apparent distress Eye Exam - bilateral eye PERRL, bilateral eye EOMI Comment no icterus Ear, Nose, Throat normal ENT inspection, normal pharynx, no sinus tenderness or nasal lesions Neck supple, no meningeal sx Respiratory Status No: respiratory distress, productive cough. Lung Sounds bilateral: lungs clear. 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 No Results/Orders Laboratory Tests 09/12/162215: Lactic Acid 10.8 H 09/12/162209: Opiates Screen NEGATIVE, Urine Methadone Screen NEGATIVE, Barbiturates NEGATIVE, Phencyclidine Screen NEGATIVE, Amphetamines Screen NEGATIVE, Benzodiazepines Screen POSITIVE H, Cocaine Screen NEGATIVE, Marijuana (THC) Screen POSITIVE H, Urine Color YELLOW, Urine Appearance SL CLOUDY, Urine pH 6.0, Ur Specific Ball >= 1.030, Urine Protein 3+ H, Urine Ketones TRACE H, Urine Blood 3+ H , Urine Nitrate NEGATIVE, Urine Bilirubin NEGATIVE, Urine Urobilinogen 0.2, Ur Leukocyte Esterase NEGATIVE, Urine RBC 5-10, Amorphous Sediment TRACE, Hyaline Casts FEW, Coarse Granular Casts FEW, Urine Mucus TRACE, Urine Glucose NEGATIVE 09/12/162200: Creatine Kinase 887 H, CK-MB (CK-2) Rel Index 0.5, CK and CKMB Interp 4.7 H, Troponin I < 0.02, ESR 1 09/12/162200: Sodium 142, Potassium 2.7 *L, Chloride 100, Carbon Dioxide 14 L, BUN 22 H, Creatinine 1.8 H, Estimated Creat Clear 81, Estimated GFR (MDRD) 46, Glucose 189 H, Calcium 11.0 H, Total Bilirubin 1.0, AST 61 H, ALT 64, Alkaline Phosphatase 83, Total Protein 8.9 H, Albumin 4.7, Globulin 4.2 H, Albumin/ Globulin Ratio 1.1, WBC 23.5 *H, RBC 5.22, Hgb 16.6, Hct 50.0, MCV 95.8, RDW 13.5, Plt Count 308, MPV 7.6, Gran % 73.3, Gran # 17.2 H, Total Counted 100, Lymphocytes % 19.1, Monocytes % 7.0, Eosinophils % 0.1, Basophils % 0.5, Neutrophils 75, Band Neutrophils 7, Lymphocytes (Manual) 15, Lymphocytes # 4.5, Monocytes (Manual) 3, Monocytes # 1.6 H, Eosinophils # 0.0, Basophils # 0.1, Platelet Estimate NORMAL, Macrocytosis SL., Rouleaux SL., PUBS MCHC 33.2, MCH 31.9 H, Salicylates 1.9 L, Acetaminophen 0 L, Alcohols 0 Current Medication Orders Sig/Miguel Start time Last Medication Dose Route Stop Time Status Admin Ceftriaxone Sodium 1 GM ONCE ONE 09/13 2345 AC 09/13 Sodium Chloride 50 ML IV 09/14 0014 0007 Potassium Chloride 40 MEQ ONCE ONE 09/13 0045 DC 09/13 PO 09/13 0046 0047 Potassium Chloride 0 .STK-MED ONE 09/13 0040 DC PO Sodium Chloride 1,000 ML .Q1H1M 09/13 0015 DC 09/13 IV 09/13 0115 0007 Sodium Chloride 10 ML PRN PRN 09/13 0015 AC IV 09/14 0006 Ceftriaxone Sodium 0 .STK-MED ONE 09/13 0007 DC IV Sodium Chloride 50 ML .STK-MED ONE 09/13 0007 DC IV Sodium Chloride 1,000 ML .STK-MED ONE 09/12 2351 DC IV Sodium Chloride 1,000 ML .STK-MED ONE 09/12 2301 DC IV Sodium Chloride 1,000 ML .Q1H1M 09/12 2300 DC 09/12 IV 09/13 0000 2301 Sodium Chloride 10 ML PRN PRN 09/12 2300 AC IV 09/13 2300 Sodium Chloride 1,000 ML .Q1H1M 09/12 2230 DC 09/12 IV 09/12 2330 2220 Sodium Chloride 10 ML PRN PRN 09/12 2230 AC IV 09/13 2219 Acetaminophen 650 MG ONCE ONE 09/12 221 DC 09/12 ID 09/12 2216 2219 Sodium Chloride 10 ML PRN PRN 09/12 2215 AC IV 09/13 2213 Acetaminophen 0 .STK-MED ONE 09/12 2210 DC ID Sodium Chloride 1,000 ML .STK-MED ONE 09/12 2204 DC IV Orders Procedure Date/time Status DIET-NOTHING BY MOUTH 09/13 B Active LACTIC ACID FOLLOW UP 09/13 0054 Active SUBSTATION INSPECTOR 09/13 0021 Active SED RATE 09/12 222 Complete C-REACTIVE PROTEIN 09/12 2221 Complete CHEST-PORTABLE 09/13 2215 Active CARDIAC ENZYMES 09/13 2215 Complete ELECTROCARDIOGRAM REQUEST 09/12 2214 Active IV SALINE LOCK 09/12 2214 Active URINARY CATHETER INSERT 09/12 2214 Active CULTURE, BLOOD 09/12 2214 Active URINALYSIS/COMPLETE 09/12 2214 Complete SALICYLATE 09/12 2214 Complete LACTIC ACID 09/12 2214 Complete DRUG ABUSE SCREEN (TRIAGE) 09/12 2214 Complete CBC WITH AUTO DIFF 09/12 2214 Complete CHEM 12 PROFILE 09/12 2214 Complete ALCOHOL 09/12 2214 Complete Acetaminophen 09/12 2214 Complete DIFFERENTIAL-WBC 09/12 2200 Complete 12 LEAD EKG-BESSON (INITIAL) 09/12 UNK Active 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 ST/Twave chgs XRAY/CT/US XRAY/CT/US XRAY chest XR interpretation by reviewed by me Xray Results normal/NAD Departure Departure Time of Disposition 0125 Disposition DC Home or Self Care(routine) Clinical Impression Primary Impression: Febrile illness, acute Secondary Impressions: Drug abuse Hypokalemia Leukocytosis Qualifiers: Leukocytosis type: unspecified Qualified Code: D72.829 - Elevated white blood cell count, unspecified Medical clearance for incarceration Psychiatric disorder Renal insufficiency Condition STABLE Prescriptions Current Visit Scripts No Known Home Medications ED Critical Care Critical Care Yes Time spent 75-104 min Vital system(s) involved: fever joyal I was present at bedside for Coordinating pt's care, Interpreting EKGs/Strips , Reviewing lab results, Reviewing old records, Discussing pt condition, For re- examinations, Examining radiographs Comments discussed with police - he has refused testing and admit and has fever with abn wbc and no source noted - in view that he has improved in the ed and and his labs are abn but not critical - i feel it is ok to allow him to go to [facility] - it may be the safest and best option at this time - he will [place] [facility] [place] 0130
--- NOTE | 2016-09-12 22:22 | Emergency Room Report ---
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 PT WAS FOUND IN A GARAGE NOT OF HIS OWN RESIDENCE, PT DID NOT HAVE ON ANY CLOTHES. PT IS CURRENTLY HAND CUFFED TO THE BED. PT ALERT TO SELF ONLY DURING TRIAGE. PT UNSURE OF HOW HE GOT INTO THE GARAGE. PT WAS FOUND LAYING ON THE GROUND. 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 N Clinical Suspician of Infection? N Mental Status: 3 - Acutely Altered Sepsis Risk:Severe Sepsis Risk Have you (or family members/close friends) recently traveled outside the [place]? N If Yes, where/when: Have you had exposure to infectious disease within the past month? N TB? Other? Specify: Source patient, RN notes reviewed, family, old records Exam Limitations no limitations Comment pt with known pschy issues and was recently in the ed for same and tonight had fever and no cough/sore throat/ rash or flu sx - he has no chest or abd pain and no focal neuro sx Cardiac Chest Pain Chest pain indicative of cardiac No Timing/Duration this evening Severity moderate ALLERGIES Coded Allergies: No Known Allergies (09/10/16) Home Medications Reported Medications No Known Home Medications History Medical History General CAD? No Angina: No RI: No Hypertension? No Hyperlipidemia? No CHF? No DVT? No PE? No COPD? No Asthma? No Anemia? No GERD? No Gastric ulcers? No GI Bleed? No Hernia? No Thyroid Problems? No Hypothyroidism? No CVA? No Seizures? No Diabetes? No Renal Insuffiency? No End Stage Renal Disease? No UTI? No Stones? No BPH? No GB Disease: No Nephritic Syndrome? No Asplenia? No Hepatitis? No Sickle Cell Disease? No Arthritis? No Migraines? No Cataracts? No Glaucoma? No MRSA? No HIV? No TB? No Anxiety? Yes Depression? Yes Cancer? No Immunization Hx DT/Tetanus 1-4 YRS Surgical Hx Previous Surgery?Y Tonsils Social History Smoking Hx Smoker: Never Smoker Tobacco: No Packs/day N/A Alcohol Alcohol: Yes Drugs marijuana Additionial History Additional History he admits to snorting meds and thc Review of Systems All Other Systems Reviewed and Negative Constitutional see HPI, fever Eyes denies drainage ENT denies: ear pain, epistaxis, throat pain. Respiratory denies cough, denies shortness of breath, denies wheezing Cardiovascular denies chest pain, denies syncope Gastrointestinal denies diarrhea, denies vomiting Genitourinary denies: dysuria, frequency, hesitancy, hematuria. Musculoskeletal denies back pain, denies joint pain, denies joint swelling, denies neck pain Skin denies rash Psychiatric/Neurological denies headache, denies seizure Physical Exam Vital Signs Vital Signs Date Time Temp Pulse Resp B/P Pulse O2 O2 Flow FiO2 Ox Delivery Rate 09/13 0119 91 20 166/97 98 09/13 0108 92 20 99 09/13 0039 99 20 160/112 99 /09 0008 96 20 151/85 99 /08 2359 98.5 100 22 168/102 99 /08 2330 98.5 107 22 179/113 97 /08 2327 107 22 179/113 97 07/08 2258 115 22 192/112 97 07/08 2227 131 22 187/109 97 07/08 2204 102.4 142 22 166/103 97 General Appearance no apparent distress Eye Exam - bilateral eye PERRL, bilateral eye EOMI Comment no icterus Ear, Nose, Throat normal ENT inspection, normal pharynx, no sinus tenderness or nasal lesions Neck supple, no meningeal sx Respiratory Status No: respiratory distress, productive cough. Lung Sounds bilateral: lungs clear. 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 No Results/Orders Laboratory Tests 09/12/162215: Lactic Acid 10.8 H 09/12/162209: Opiates Screen NEGATIVE, Urine Methadone Screen NEGATIVE, Barbiturates NEGATIVE, Phencyclidine Screen NEGATIVE, Amphetamines Screen NEGATIVE, Benzodiazepines Screen POSITIVE H, Cocaine Screen NEGATIVE, Marijuana (THC) Screen POSITIVE H, Urine Color YELLOW, Urine Appearance SL CLOUDY, Urine pH 6.0, Ur Specific [place] >= 1.030, Urine Protein 3+ H, Urine Ketones TRACE H, Urine Blood 3+ H , Urine Nitrate NEGATIVE, Urine Bilirubin NEGATIVE, Urine Urobilinogen 0.2, Ur Leukocyte Esterase NEGATIVE, Urine RBC 5-10, Amorphous Sediment TRACE, Hyaline Casts FEW, Coarse Granular Casts FEW, Urine Mucus TRACE, Urine Glucose NEGATIVE 09/12/162200: Creatine Kinase 887 H, CK-MB (CK-2) Rel Index 0.5, CK and CKMB Interp 4.7 H, Troponin I < 0.02, ESR 1 09/12/162200: Sodium 142, Potassium 2.7 *L, Chloride 100, Carbon Dioxide 14 L, BUN 22 H, Creatinine 1.8 H, Estimated Creat Clear 81, Estimated GFR (MDRD) 46, Glucose 189 H, Calcium 11.0 H, Total Bilirubin 1.0, AST 61 H, ALT 64, Alkaline Phosphatase 83, Total Protein 8.9 H, Albumin 4.7, Globulin 4.2 H, Albumin/ Globulin Ratio 1.1, WBC 23.5 *H, RBC 5.22, Hgb 16.6, Hct 50.0, MCV 95.8, RDW 13.5, Plt Count 308, MPV 7.6, Gran % 73.3, Gran # 17.2 H, Total Counted 100, Lymphocytes % 19.1, Monocytes % 7.0, Eosinophils % 0.1, Basophils % 0.5, Neutrophils 75, Band Neutrophils 7, Lymphocytes (Manual) 15, Lymphocytes # 4.5, Monocytes (Manual) 3, Monocytes # 1.6 H, Eosinophils # 0.0, Basophils # 0.1, Platelet Estimate NORMAL, Macrocytosis SL., Rouleaux SL., PUBS MCHC 33.2, MCH 31.9 H, Salicylates 1.9 L, Acetaminophen 0 L, Alcohols 0 Current Medication Orders Sig/Miguel Start time Last Medication Dose Route Stop Time Status Admin Ceftriaxone Sodium 1 GM ONCE ONE 09/13 2345 AC 09/13 Sodium Chloride 50 ML IV 09/14 0014 0007 Potassium Chloride 40 MEQ ONCE ONE 09/13 0045 DC 09/13 PO 09/13 0046 0047 Potassium Chloride 0 .STK-MED ONE 09/13 0040 DC PO Sodium Chloride 1,000 ML .Q1H1M 09/13 0015 DC 09/13 IV 09/13 0115 0007 Sodium Chloride 10 ML PRN PRN 09/13 0015 AC IV 09/14 0006 Ceftriaxone Sodium 0 .STK-MED ONE 09/13 0007 DC IV Sodium Chloride 50 ML .STK-MED ONE 09/13 0007 DC IV Sodium Chloride 1,000 ML .STK-MED ONE 09/12 2351 DC IV Sodium Chloride 1,000 ML .STK-MED ONE 09/12 2301 DC IV Sodium Chloride 1,000 ML .Q1H1M 09/12 2300 DC 09/12 IV 09/13 0000 2301 Sodium Chloride 10 ML PRN PRN 09/12 2300 AC IV 09/13 2300 Sodium Chloride 1,000 ML .Q1H1M 09/12 2230 DC 09/12 IV 09/12 2330 2220 Sodium Chloride 10 ML PRN PRN 09/12 2230 AC IV 09/13 2219 Acetaminophen 650 MG ONCE ONE 09/12 221 DC 09/12 AR 09/12 2216 2219 Sodium Chloride 10 ML PRN PRN 09/12 2215 AC IV 09/13 2213 Acetaminophen 0 .STK-MED ONE 09/12 2210 DC AR Sodium Chloride 1,000 ML .STK-MED ONE 09/12 2204 DC IV Orders Procedure Date/time Status DIET-NOTHING BY MOUTH 09/13 B Active LACTIC ACID FOLLOW UP 09/13 0054 Active CLIENT SERVICES ASSISTANT 09/13 0021 Active SED RATE 09/12 222 Complete C-REACTIVE PROTEIN 09/12 2221 Complete CHEST-PORTABLE 09/13 2215 Active CARDIAC ENZYMES 09/13 2215 Complete ELECTROCARDIOGRAM REQUEST 09/12 2214 Active IV SALINE LOCK 09/12 2214 Active URINARY CATHETER INSERT 09/12 2214 Active CULTURE, BLOOD 09/12 2214 Active URINALYSIS/COMPLETE 09/12 2214 Complete SALICYLATE 09/12 2214 Complete LACTIC ACID 09/12 2214 Complete DRUG ABUSE SCREEN (TRIAGE) 09/12 2214 Complete CBC WITH AUTO DIFF 09/12 2214 Complete CHEM 12 PROFILE 09/12 2214 Complete ALCOHOL 09/12 2214 Complete Acetaminophen 09/12 2214 Complete DIFFERENTIAL-WBC 09/12 2200 Complete 12 LEAD EKG-BESSON (INITIAL) 09/12 UNK Active 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 ST/Twave chgs XRAY/CT/US XRAY/CT/US XRAY chest XR interpretation by reviewed by me Xray Results normal/NAD Departure Departure Time of Disposition 0125 Disposition DC Home or Self Care(routine) Clinical Impression Primary Impression: Febrile illness, acute Secondary Impressions: Drug abuse Hypokalemia Leukocytosis Qualifiers: Leukocytosis type: unspecified Qualified Code: D72.829 - Elevated white blood cell count, unspecified Medical clearance for incarceration Psychiatric disorder Renal insufficiency Condition STABLE Prescriptions Current Visit Scripts No Known Home Medications ED Critical Care Critical Care Yes Time spent 75-104 min Vital system(s) involved: fever joyal I was present at bedside for Coordinating pt's care, Interpreting EKGs/Strips , Reviewing lab results, Reviewing old records, Discussing pt condition, For re- examinations, Examining radiographs Comments discussed with police - he has refused testing and admit and has fever with abn wbc and no source noted - in view that he has improved in the ed and and his labs are abn but not critical - i feel it is ok to allow him to go to [facility] - it may be the safest and best option at this time - he will need follow up with [facility] at 0130
[2016-09-12 23:23] LABS: URINE BLOOD 3+ (NEG)
[2016-09-12 23:27] LABS: URINE BILIRUBIN - DIPSTICK NEGATIVE (NEG)
[2016-09-12 23:41] LABS: AMPHETAMINES/METAMPHETAMINES NEGATIVE ng/mL (<1000)
[2016-09-12 23:55] LABS: NEUTROPHILS 75 % (42-76)
[2016-09-13 01:36] VITALS: BP 166/97
--- NOTE | 2016-09-13 10:28 | RADIOLOGY REPORT PS360 ---
CHEST-PORTABLE Ordering Physician: Jaky Garrison MD Patient Age: 26 years: Male HISTORY: AMSaltered mental status. Unresponsive. TECHNIQUE: AP portable supine chest FINDINGS COMPARISON is made to previous chest film from 10/10/2013. Also CT abdomen which includes chest from 04/29/2016. Nothing definitely acute. Lungs appear fairly well expanded and overall clear. . With Upper normal markings right perihilar region but no definitive pneumonia. Respiratory symptoms should progress consider follow-up in The heart janina and mediastinal structures satisfactory. No pneumothorax no pleural effusion the chest wall unremarkable IMPRESSION: Nothing definitely acute. No focal pneumonia Perihilar markings upper normal on right I believe due to technique. Likely normal but if respiratory symptoms develop or progress consider follow-up
== END 2016-09-13 01:51 | disposition home or self-care (01) ==
LOC: ER 21:59
PROVIDERS: Emergency Medicine
DX: R50.9 Fever, unspecified (principal); D72.829 Elevated white blood cell count, unspecified; N28.9 Disorder of kidney and ureter, unspecified; E87.6 Hypokalemia; Z02.89 Encounter for other administrative examinations; F12.10 Cannabis abuse, uncomplicated; F13.10 Sedative, hypnotic or anxiolytic abuse, uncomplicated; F41.8 Other specified anxiety disorders